=== PATIENT | female | born 2000 | race Caucasian/White ===

== ENCOUNTER 2019-05-22 10:45 | Emergency (ER) | payer BC ==
--- NOTE | 2019-05-22 10:54 | ED ---
HPI Diabetic - HPI Summary HPI Summary: The patient is a 19 y/o F arriving by ambulance to [facility] accompanied by friend with a chief complaint of unresponsiveness secondary to hypoglycemia this morning. EMS reports that the patients friend found the patient unresponsive this morning, so she called EMS. Blood glucose on EMS arrival was 55, so oral glucose was administered and IV dextrose, which brought blood glucose up to 60. En route to the ED, the patient regained consciousness, and her glucose before entrance was 141. She reports that she has hx of type I DM and uses 55 units Tresiba as long lasting insulin and 1unit/55gms Hemalog as fast acting insulin. She denies any recent change in insulin doses. She doesnt have any pain or weakness anywhere. It is noted that she didn't each much yesterday, but she had been taking her insulin. PMHx: DM type I. Nonsmoker, weekly EtOH, no substance use. Medications reviewed. Allergies reviewed. - History Of Current Complaint Hx Obtained From: Patient, EMS Onset/Duration: Sudden Onset, Resolved Timing: Minutes Severity Initially: Severe Severity Currently: Mild Character: Other - unresponsive Aggravating: Other - decreased oral intake Alleviating: EMS Treatment - dextrose Associated Signs & Symptoms: Decreased Level of Conciousness - resolved Related History: Compliant, DM I - Allergies/Home Medications Allergies/Adverse Reactions: Allergies Allergy/AdvReac Type Severity Reaction Status Date / Time No Known Allergies Allergy Verified 05/22/19 10:56 PMH/Surg Hx/FS Hx/Imm Hx Endocrine/Hematology History: Reports: Hx Diabetes - tyepe I Respiratory History: Denies: Hx Asthma Sensory History: Denies: Hx Legally Blind, Hx Deafness EENT History: Denies: Hx Deafness - Surgical History Surgical History: None Surgery Procedure, Year, and Place: none - Family History Known Family History: Positive: Diabetes - Social History Alcohol Use: Weekly Hx Substance Use: No Substance Use Type: Reports: None Hx Tobacco Use: No Smoking Status (MU): Never Smoked Tobacco Review of Systems Positive: Other - decreased oral intake Neurological: Other - unresponsiveness (resolved) All Other Systems Reviewed And Are Negative: Yes Physical Exam - Summary Physical Exam Summary: Constitutional: Well-developed, Well-nourished, Alert. (-) Distressed Skin: Warm, Dry HENT: Normocephalic; Atraumatic Eyes: Conjunctiva normal Neck: Musculoskeletal ROM normal neck. (-) JVD, (-) Stridor, (-) Tracheal deviation Cardio: Rhythm regular, rate normal, Heart sounds normal; Intact distal pulses; The pedal pulses are 2+ and symmetric. Radial pulses are 2+ and symmetric. (-) Murmur Pulmonary/Chest wall: Effort normal. (-) Respiratory distress, (-) Wheezes, (-) Rales Abd: Soft, (-) tenderness, (-) Distension, (-) Guarding, (-) Rebound Musculoskeletal: (-) Edema Lymph: (-) Cervical adenopathy Neuro: Alert, Oriented x4, Strength normal, Cranial nerves II-XII are grossly intact. (-) Dysmetria, (-) Nystagmus, (-) Ataxia by finger to nose testing, (-) Sensory deficit. Psych: Mood and affect Normal Triage Information Reviewed: Yes Vital Signs Reviewed: Yes Re-Evaluation - Re-Evaluation First Eval Re-Evaluation Time: 11:15 Change: Improved Comment: The patient is feeling much better, and she is currently eating a sandwich. Second Eval Re-Evaluation Time: 12:20 Comment: Patient is clear for discharge after improvement in symptoms. Diabetic Course/Dx - Course Course Of Treatment: Patient is here with symptomatic hypoglycemia. Patient took her insulin yesterday but did not eat a normal diet. Patient initially was 55 with EMS but improved to a normal glucose by the time she got here. Patient was tolerating by mouth here and had a glucose checked twice with no repeat hypoglycemia. Patient was educated on eating when taking her insulin. Patient had her questions answered and was comfortable at discharge. - Diagnoses Provider Diagnoses: Diabetic hypoglycemia, Altered mental status Discharge - Sign-Out/Discharge Documenting (check all that apply): Patient Departure - Patient will be discharged home. Patient Received Moderate/Deep Sedation with Procedure: No - Discharge Plan Condition: Improved Disposition: HOME Patient Education Materials: Hypoglycemia in a Person with Diabetes (ED) Referrals: [facility] [place] [facility]FERR[facility] [Outside] - 3 Days [facility] [Outside] - 3 Days Additional Instructions: Make sure you eat a normal diet when you take your insulin. PLEASE RETURN TO EMERGENCY DEPARTMENT FOR ANY NEW OR WORSENING SYMPTOMS. FOLLOW UP WITH YOUR PRIMARY CARE PHYSICIAN IN 2-3 DAYS. - Billing Disposition and Condition Condition: IMPROVED Disposition: Home - Attestation Statements Document Initiated by Dania: Yes Documenting Scribe: Kiarra Guerrero Provider For Whom Dania is Documenting (Include Credential): Dr. Francisco Kirkpatrick MD Scribe Attestation: I, scottie Webered for Dr. Francisco Kirkpatrick MD on 05/22/19 at 1244. Scribe Documentation Reviewed: Yes Provider Attestation: The documentation as recorded by the Kiarra lorenzo accurately reflects the service I personally performed and the decisions made by me, Dr. Francisco Kirkpatrick MD Status of Scribe Document: Viewed
[2019-05-22 12:49] VITALS: BP 121/76
== END 2019-05-22 12:49 | disposition home or self-care (01) ==
LOC: ED 10:45
DX: E10.649 Type 1 diabetes mellitus with hypoglycemia without coma (principal); R41.82 Altered mental status, unspecified; Z79.4 Long term (current) use of insulin
CPT/HCPCS: 99283

== ENCOUNTER 2019-05-23 10:12 | Emergency (ER) | payer BC ==
[2019-05-23] MEDS ORDERED: Dextrose 50% Syringe 50 ML* 25 GM/50 ML SYRINGE IV PUSH ONE (10:16)
--- NOTE | 2019-05-23 10:20 | ED ---
HPI Diabetic - HPI Summary HPI Summary: LEVEL 5 CAVEAT secondary to AMS. The patient is a 19 y/o F arriving by ambulance to [facility] with a chief complaint of hypoglycemia this morning. Her friends called EMS as she had a change in responsiveness and increased lethargy. EMS reports confusion. She states that she takes insulin but isnt sure how much, although she takes it twice a day with meals, and she took it this morning with breakfast. She has a sensor on the posterior arm that records her BG. When EMS arrived, the patients blood glucose was measured at 55, and upon arrival to the ED, the sugar was measured at 28. Patient refused treatment in the ambulance. She denies any pain at this time. She was here yesterday for the same symptoms, and she states that she remembers being here. PMHx: IDDM. Nonsmoker, weekly EtOH, no substance use. - History Of Current Complaint Hx Obtained From: EMS, Medical Records, Other: - friends Hx From Patient Unobtainable Due To: Altered Mental Status - LEVEL 5 CAVEAT Onset/Duration: Still Present Severity Currently: Severe Character: Confused, Lethargic Associated Signs & Symptoms: Decreased Level of Conciousness - lethargy, decreased responsiveness, confused Related History: DM I, Insulin Requiring - Allergies/Home Medications Allergies/Adverse Reactions: Allergies Allergy/AdvReac Type Severity Reaction Status Date / Time No Known Allergies Allergy Verified 05/23/19 10:32 Home Medications: Home Medications Insulin Degludec [Tresiba Flextouch U-100] 55 units INJ BEDTIME 05/23/19 [ History Confirmed 05/23/19] Insulin Lispro [Humalog Kwikpen U-100] 0 - 100 unit INJ TID WITH MEALS 05/23/19 [History Confirmed 05/23/19] PMH/Surg Hx/FS Hx/Imm Hx Endocrine/Hematology History: Reports: Hx Diabetes - tyepe I Respiratory History: Denies: Hx Asthma Sensory History: Denies: Hx Legally Blind, Hx Deafness Opthamlomology History: Denies: Hx Legally Blind - Surgical History Surgery Procedure, Year, and Place: none - Family History Known Family History: Positive: Diabetes - Social History Alcohol Use: Weekly Hx Substance Use: No Substance Use Type: Reports: None Hx Tobacco Use: No Smoking Status (MU): Never Smoked Tobacco Review of Systems Positive: Other - lethargy Neurological: Other - confusion, decreased responsiveness All Other Systems Reviewed And Are Negative: No - Comments Additional Review of Systems Comments: LEVEL 5 CAVEAT secondary to AMS Physical Exam - Summary Physical Exam Summary: Constitutional: Well-developed, Well-nourished, Alert. (-) Distressed Skin: Warm, Dry HENT: Normocephalic; Atraumatic Eyes: Conjunctiva normal Neck: Musculoskeletal ROM normal neck. (-) JVD, (-) Stridor, (-) Nuchal rigidity Cardio: Rhythm regular, rate normal, Heart sounds normal; Intact distal pulses; Radial pulses are 2+ and symmetric. (-) Murmur Pulmonary/Chest wall: Effort normal. (-) Respiratory distress, (-) Wheezes, (-) Rales Abd: Soft, (-) tenderness, (-) Distension, (-) Guarding, (-) Rebound Musculoskeletal: (-) Edema Lymph: (-) Cervical adenopathy Neuro: Alert, Oriented to person not place or time Psych: deferred Triage Information Reviewed: Yes Vital Signs Reviewed: Yes Completion Of Physical Exam Limited Due To: Level 5 - secondary to AMS Diagnostics - Laboratory Result Diagrams: 05/23/19 10:35 05/23/19 10:35 Lab Statement: Any lab studies that have been ordered have been reviewed, and results considered in the medical decision making process. Re-Evaluation - Re-Evaluation First Eval Re-Evaluation Time: 10:25 Change: Improved Comment: After Dextrose IV, the patient is A&Ox3. Second Eval Re-Evaluation Time: 11:25 Change: Improved Comment: She is still A&Ox3. She reports that she takes fast-actin Hemalog 1unit /5gms carbs with meals, and Tracebo 55units every night before going to bed. She denies any changes in the dosing or concentration of the insulin but notes that she started using a new Tracebo pen prior to the three hypoglycemic events she's had over the last three days. During the first and second events, the patient hadn't been eating, but she ate yesterday before today's event. Per friends, the patient seemed to have better conversations than the previous days , but she didn't seem to be listening well and would frequently switch subjects when talking to them this morning. At this time, the patient denies any fevers, cough, dysuria, or hematuria, but she has had chills. Her director of pulmonary unit is Holly Pollock NP, in [place], [place]. She states that she would rather not stay in the hospital tonight. Third Eval Re-Evaluation Time: 11:35 Comment: I discussed consult with the hospitalist concerning her stay, but we will consult her director of pulmonary unit fom home regarding her regimen 1228 Re-Evaluation Time: 12:28 Comment: I discussed consult with her director of pulmonary unit. She agrees with change in dosage of insulin as directed (change to 45 at night, loosen carb ratio to 1: 8, check BG at 3 am, eat for BG <100). She is comfortable with going home. She will call her director of pulmonary unit Tuesday. Emphasized the importance of eating as low blood sugar is much more dangerously high blood sugar. Diabetic Course/Dx - Course Course Of Treatment: 19-year-old female with diabetes on insulin presents hypoglycemia. - Similar presentation for similar 2/2 poor PO intake, no infectious symptoms. - Check labs, give D50 for BG 28. - will d/w endocrine at [facility] regarding her insulin - Diagnoses Provider Diagnoses: Hypoglycemia - Physician Notifications Discussed Care Of Patient With: Flor Lam - hospitalist Time Discussed With Above Provider: 11:30 Instructed by Provider To: Other - Dr. Lam suggests that the patient's Tracebo dose should be changed to 30 units instead of 55 units at night, and she recommends consult with her director of pulmonary unit, but she is able to be discharged home. I spoke with the patient's director of pulmonary unit Holly Pollock NP, at 1225, and she would like the patient to change Tracebo dose to 45 units at night and the Hemalog to 1 unit/ 8gms carbs. She is to check her BG at 0200. Discharge - Sign-Out/Discharge Documenting (check all that apply): Patient Departure - Patient will be discharged home. Patient Received Moderate/Deep Sedation with Procedure: No - Discharge Plan Condition: Improved Disposition: HOME Patient Education Materials: Hypoglycemia in a Person with Diabetes (ED) Referrals: [facility] [place] [facility] [place]Outside] - 3 Days Additional Instructions: You were seen in the emergency department for low blood sugar. Please decrease your Triseba to 45 at night drop your carb ratio to 1:8. Please check your blood sugar at 2 am and call your director of pulmonary unit. If it sugar is less than 100 , please take 15 g of food. Please follow up with your primary care doctor in the next 2-3 days and return to the emergency department for worsening or concerning symptoms. It was a pleasure taking care of you today. - Billing Disposition and Condition Condition: IMPROVED Disposition: Home - Attestation Statements Document Initiated by Dania: Yes Documenting Scribe: Kiarra Guerrero Provider For Whom Dania is Documenting (Include Credential): Dr. Areli Larson MD Scribe Attestation: I, Kiarra Guerrero, scribed for Dr. Areli Larson MD on 05/23/19 at 1300. Scribe Documentation Reviewed: Yes Provider Attestation: The documentation as recorded by the Kiarra lorenzo accurately reflects the service I personally performed and the decisions made by me, Dr. Areli Larson MD Status of Scribe Document: Viewed
[2019-05-23] MEDS ORDERED: Dextrose 50% VIAL 50 ml ONE (10:26)
[2019-05-23 10:43] LABS: ABS Monocytes 0.4 10^3/ul (0-0.8); ABS Neutrophils 7.1 10^3/ul (1.5-7.7); Eosinophil % 0.3 %; Hematocrit 37 % (35-47); Lymphocyte % 11.8 %; Mean Corpuscular HGB Conc 35 g/dL (31-36); Mean Corpuscular Hemoglobin 30 pg (27-31); Mean Corpuscular Volume 86 fL (80-97); Mean Platelet Volume 8.4 fL (7.4-10.4); Platelet Count 282 10^3/uL (150-450); Red Blood Count 4.36 10^6 /uL (3.70-4.87); Red Cell Distribution Width 12 % (10-15); White Blood Count 8.6 10^3/uL (3.5-10.8)
[2019-05-23 10:59] LABS: ALT 9 U/L (7-52); AST 13 U/L (13-39); Albumin 3.7 g/dL (3.2-5.2); Albumin/Globulin Ratio 1.2 (1-3); Alkaline Phosphatase 77 U/L (34-104); Anion Gap 6 mmol/L (2-11); BUN/Creatinine Ratio 20.4 (8-20); Blood Urea Nitrogen 11 mg/dL (6-24); CO2 Carbon Dioxide 24 mmol/L (22-32); Calcium 8.4 mg/dL (8.6-10.3); Chloride 104 mmol/L (101-111); EGFR African American 172.4 (>60); EGFR Non-African American 142.5 (>60); Globulin 3.2 g/dL (2-4); Glucose 276 mg/dL (70-100); Potassium 3.9 mmol/L (3.5-5.0); Sodium 134 mmol/L (135-145); Total Protein 6.9 g/dL (6.4-8.9)
[2019-05-23 11:06] LABS: HCG Pregnancy < 0.60 mIU/mL
[2019-05-23 12:55] VITALS: BP 125/90
== END 2019-05-23 12:54 | disposition home or self-care (01) ==
LOC: ED 10:12
DX: E10.649 Type 1 diabetes mellitus with hypoglycemia without coma (principal); Z79.4 Long term (current) use of insulin; R41.82 Altered mental status, unspecified
CPT/HCPCS: 36415; 80053; 82803; 84702; 85025; 96374; 99283